=== PATIENT | female | born 1955 | race African-American/Black ===

== ENCOUNTER → 2017-07-24 | Outpatient (CLI) | payer OTHER ==
[~2017-07-24] MED LIST: DILTIAZEM 24HR120 M2 PO; ERGOCALCIF50000 UNIT PO; ESSENTIAL DAIL1 EACH PO; LO-DOSE ASPIRIN81 M2 PO; NORCO 5/3251 TABLET PO; TRIGLIDE160 MG PO; XANAX0.25 MG PO; ZANTAC300 MG PO
== END | disposition home or self-care (01) ==
LOC: CDC 12:06
DX: Z01.810 Encounter for preprocedural cardiovascular examination (principal); R10.33 Periumbilical pain; R00.1 Bradycardia, unspecified
CPT/HCPCS: 93000

== ENCOUNTER 2017-07-28 08:55 | Day surgery (SDC) | payer OTHER ==
[~2017-07-28] VITALS: Ht 160 cm; Wt 69.9 kg
[~2017-07-28 08:55] MED LIST changes: -NORCO 5/3251 TABLET PO
[2017-07-28 10:00] VITALS: BP 109/69
[2017-07-28] MEDS ORDERED: NORCO 5/3251 TABLET PO (11:54)
[2017-07-28 15:20] VITALS: BP 114/58
[2017-07-28 16:20] VITALS: BP 103/54
[2017-07-28 17:05] VITALS: BP 123/57
== END 2017-07-28 17:05 | disposition home or self-care (01) ==
LOC: SDC
PROC: 0FT44ZZ Resection of Gallbladder, Percutaneous Endoscopic Approach (ICD-10-PCS; principal; 2017-07-28)
DX: K80.10 Calculus of gallbladder with chronic cholecystitis without obstruction (principal); E55.9 Vitamin D deficiency, unspecified; I10 Essential (primary) hypertension; E78.5 Hyperlipidemia, unspecified; M17.0 Bilateral primary osteoarthritis of knee; F41.8 Other specified anxiety disorders; D64.9 Anemia, unspecified; K21.9 Gastro-esophageal reflux disease without esophagitis; E66.9 Obesity, unspecified; Z68.41 Body mass index [BMI] 40.0-44.9, adult; Z88.0 Allergy status to penicillin; Z79.82 Long term (current) use of aspirin
CPT/HCPCS: 88304; J0330; J1100; J1170; J1580; J1885; J2250; J2405; J2710; J2765; J3010; J7050; S0030